=== PATIENT | male | born 1975 | race Caucasian/White ===

== ENCOUNTER 2019-06-20 11:46 | Emergency (ER) | payer BC, OTHER ==
[~2019-06-20] VITALS: Ht 177.8 cm; Wt 113.5 kg
[~2019-06-20 11:46] MED LIST: PANT-47 PO
[2019-06-20] MEDS ORDERED: TETanus/Pertussis (Acell)/Diphther VAC/PF (Tdap-Adult) 0.5ml syringe IMVAC ONE (12:05)
[2019-06-20] MEDS ORDERED: ciprofloxacin lact 400MG/200ML 200 ML IV STA (12:33)
[2019-06-20] MEDS ORDERED: LIDOcaine 1% 30ml preserv. free vial SQ STA (12:34)
[2019-06-20 13:13] LABS: URINE AMPHETAMINE SCREEN NEGATIVE (Neg); URINE BARBITUATE SCREEN NEGATIVE (Neg); URINE BENZODIAZEPINES SCREEN NEGATIVE (Neg); URINE CANNABINOID SCREEN NEGATIVE (Neg); URINE COCAINE SCREEN NEGATIVE (Neg); URINE METHADONE SCREEN NEGATIVE (Neg); URINE OPIATE SCREEN NEGATIVE (Neg); URINE PHENCYCLIDINE SCREEN NEGATIVE (Neg)
[2019-06-20] MEDS ORDERED: CIPR-259 PO (13:21)
[2019-06-20] MEDS ORDERED: HYDR-4383 PO (13:41)
[2019-06-20 14:06] VITALS: BP 154/89
== END 2019-06-20 14:11 | disposition home or self-care (01) ==
LOC: ER 11:47
DX: S62.630A Displaced fracture of distal phalanx of right index finger, initial encounter for closed fracture (principal); S61.210A Laceration without foreign body of right index finger without damage to nail, initial encounter; G43.909 Migraine, unspecified, not intractable, without status migrainosus; G89.29 Other chronic pain; M54.9 Dorsalgia, unspecified; Z88.0 Allergy status to penicillin; W22.8XXA Striking against or struck by other objects, initial encounter; Y93.89 Activity, other specified; Y92.89 Other specified places as the place of occurrence of the external cause; Y99.8 Other external cause status
CPT/HCPCS: 12001; 73130; 80305; 90471; 90715; 96365; 99284; J0744; J2001; 99283

== ENCOUNTER 2019-07-23 09:49 | Emergency (ER) | payer OTHER ==
[~2019-07-23] VITALS: Ht 177.8 cm; Wt 114.0 kg
[~2019-07-23 09:49] MED LIST changes: +HYDR-4383 PO
[2019-07-23 10:05] VITALS: BP 176/128
[2019-07-23] MEDS ORDERED: SULF1TAB49 PO (12:02)
== END 2019-07-23 12:21 | disposition home or self-care (01) ==
LOC: ER 09:50
DX: S62.630D Displaced fracture of distal phalanx of right index finger, subsequent encounter for fracture with routine healing (principal); S61.210D Laceration without foreign body of right index finger without damage to nail, subsequent encounter; G89.29 Other chronic pain; Z98.890 Other specified postprocedural states; Z88.0 Allergy status to penicillin; Z79.2 Long term (current) use of antibiotics; Z79.899 Other long term (current) drug therapy; W22.8XXD Striking against or struck by other objects, subsequent encounter
CPT/HCPCS: 73140; 99283

== ENCOUNTER 2021-06-04 17:05 | Emergency (ER) | payer BC, OTHER | END 2021-06-04 19:30 | disposition left against medical advice (07) | LOC: ER 17:06 | DX: R10.9 Unspecified abdominal pain (principal); Z53.21 Procedure and treatment not carried out due to patient leaving prior to being seen by health care provider ==

== ENCOUNTER 2024-03-18 20:16 | Emergency (ER) | payer BC ==
[~2024-03-18] VITALS: Ht 177.8 cm; Wt 113.0 kg
[2024-03-18 20:54] LABS: HEMOGLOBIN 17.8 g/dl (14.0-17.9); LYMPHOCYTES % (AUTO) 48.3 % (21-51); MEAN PLATELET VOLUME 7.8 FL (7.4-10.4); MONOCYTES # (AUTO) 0.6 X10'3 (0-0.9); NEUTROPHILS # (AUTO) 4.4 X10'3 (1.8-7.7); RED CELL DISTRIBUTION WIDTH 13.8 % (11.5-14.5)
[2024-03-18 20:55] LABS: BASOPHILS # (AUTO) 0.1 X10'3 (0-0.2); BASOPHILS % (AUTO) 0.6 % (0-1); EOSINOPHILS # (AUTO) 0.1 X10'3 (0-0.9); EOSINOPHILS % (AUTO) 1.3 % (0-6); HEMATOCRIT 52.2 % (42.0-52.0); LYMPHOCYTES # (AUTO) 4.9 X10'3 (1.1-4.8); MEAN CORPUSCULAR HEMOGLOBIN 31.7 PG (27.0-31.0); MEAN CORPUSCULAR HGB CONC 34.1 g/dL (33.0-36.5); MEAN CORPUSCULAR VOLUME 93.1 FL (78-98); MONOCYTES % (AUTO) 6.1 % (2-12); NEUTROPHILS % (AUTO) 43.7 % (42-75); PLATELET COUNT 392 X10'3 (140-440); RED BLOOD COUNT 5.61 X10'6 (4.70-6.10); WHITE BLOOD COUNT 10.1 X10'3 (4.5-11.0)
[2024-03-18 21:08] LABS: ALANINE AMINOTRANSFERASE 34 U/L (12-78); ALBUMIN 3.9 G/DL (3.4-5.0); ALBUMIN/GLOBULIN RATIO 1.1 (1.1-1.5); ALKALINE PHOSPHATASE 100 IU/L (46-116); ANION GAP 8 (8-16); ASPARTATE AMINO TRANSFERASE 15 U/L (10-37); BILIRUBIN,TOTAL 0.6 MG/DL (0.1-1.0); BLOOD UREA NITROGEN 10 MG/DL (7-18); BUN/CREATININE RATIO 9.5 (10.0-20.0); CALCIUM 10.3 MG/DL (8.5-10.1); CHLORIDE 103 MMOL/L (99-107); CREATININE 1.05 MG/DL (0.60-1.10); GLUCOSE 116 MG/DL (70-104); LIPASE 42 U/L (16-77); POTASSIUM 3.9 MMOL/L (3.5-5.1); SODIUM 137 MMOL/L (135-145); TOTAL CARBON DIOXIDE 26.5 MMOL/L (24-32); TOTAL PROTEIN 7.6 G/DL (6.4-8.2); eCRCL 88 ML/MIN; eGFR 75 ML/MIN
[2024-03-19] MEDS: ondansetron 4mg rapidly disintigrating tab PO ONE (01:04)
[2024-03-19] MEDS: mag hydrox/Alum hydrox/simeth 30ml oral suspension PO ONE (01:04)
[2024-03-19] MEDS: LIDOcaine 2% Viscous 15ml cup MM ONE (01:04)
[2024-03-19 01:31] LABS: BILIRUBIN,URINE NEGATIVE (Neg); CLARITY,URINE CLEAR (Clear); COLOR,URINE YELLOW (Yellow); GLUCOSE, URINE NEGATIVE (Neg); KETONES,URINE NEGATIVE (Neg); LEUKOCYTE ESTERASE ,URINE NEGATIVE (Neg); NITRITES, URINE NEGATIVE (Neg); OCCULT BLOOD,URINE NEGATIVE (Neg); PH,URINE 6.5 (4.8-8.0); PROTEIN,URINE NEGATIVE (Neg); UROBILINOGEN,URINE 0.2 E.U/dL (0.2-1.0)
[2024-03-19 01:39] VITALS: BP 172/98; PULSE 68; RESP 16; TEMP 98.9; O2SAT 97
[2024-03-19 01:40] LABS: UA COLLECTION TYPE CLN CATCH MIDSTREAM
[2024-03-19] MEDS ORDERED: PANT20TA18 PO (02:02)
== END 2024-03-19 02:10 | disposition home or self-care (01) ==
LOC: ER 20:17
DX: R10.11 Right upper quadrant pain (principal); G43.909 Migraine, unspecified, not intractable, without status migrainosus; Z88.0 Allergy status to penicillin; Z79.899 Other long term (current) drug therapy; Z90.81 Acquired absence of spleen
CPT/HCPCS: 80053; 81003; 83690; 85025; 99284

== ENCOUNTER 2025-06-27 18:06 | Emergency (ER) | payer BC ==
[~2025-06-27] VITALS: Ht 177.8 cm; Wt 122.2 kg
[~2025-06-27 18:06] MED LIST changes: +PANT20TA18 PO
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
--- NOTE | 2025-06-27 19:00 | RADIOLOGY REPORT ---
CLINICAL INDICATION: ARM PAIN TECHNIQUE: 3 radiographic views of the left humerus were obtained. Comparison: None FINDINGS/IMPRESSION: There is no evidence of acute fracture or dislocation. The visualized joint space is well maintained. The alignment is anatomical. There is no radiopaque foreign body.
[2025-06-27] MEDS ORDERED: NAPR-56 PO (19:01)
[2025-06-27] MEDS ORDERED: CYCL-1 PO (19:01)
[2025-06-27 19:32] VITALS: BP 170/99; PULSE 89; RESP 20; TEMP 98.6; O2SAT 99
== END 2025-06-27 19:34 | disposition home or self-care (01) ==
LOC: ER 18:07
DX: S40.012A Contusion of left shoulder, initial encounter (principal); S00.93XA Contusion of unspecified part of head, initial encounter; G43.909 Migraine, unspecified, not intractable, without status migrainosus; F10.129 Alcohol abuse with intoxication, unspecified; Z87.440 Personal history of urinary (tract) infections; Z88.0 Allergy status to penicillin; Z90.81 Acquired absence of spleen; W22.09XA Striking against other stationary object, initial encounter; Y93.89 Activity, other specified; Y92.410 Unspecified street and highway as the place of occurrence of the external cause; Y99.8 Other external cause status; Y90.9 Presence of alcohol in blood, level not specified
CPT/HCPCS: 73060; 99283

== ENCOUNTER 2025-08-26 12:35 | Inpatient (IN) | payer BC ==
[~2025-08-26] VITALS: Ht 177.8 cm; Wt 131.0 kg
[~2025-08-26 12:35] MED LIST changes: +CYCL-1 PO
[2025-08-26 13:07] LABS: MEAN PLATELET VOLUME 8.2 FL (7.4-10.4); RED CELL DISTRIBUTION WIDTH 13.8 % (11.5-14.5)
[2025-08-26] MEDS: normal saline 1000ML IV soln IVB ONE (13:10)
[2025-08-26 13:26] LABS: CREATININE 1.25 MG/DL (0.60-1.10); TOTAL CARBON DIOXIDE 27.7 MMOL/L (24-32); eCRCL 73 ML/MIN; eGFR 61 ML/MIN
--- NOTE | 2025-08-26 13:30 | RADIOLOGY REPORT ---
CHEST RADIOGRAPH Indication: syncope Technique: Single frontal view of the chest was obtained Comparison: None FINDINGS: Lines and Tubes: None Lungs: No focal consolidation. Pleura: No effusion. No pneumothorax. Cardiomediastinal contours: Unremarkable Bones: No acute osseous abnormality. IMPRESSION: No acute cardiopulmonary disease.
--- NOTE | 2025-08-26 13:31 | ELECTROCARDIOGRAPH REPORT ---
[facility] Test Date: 2025-08-26 Test Time: 13:05:05 Pat Name: IRENE KEATING Department: EMERGENCY ROOM Patient ID: [facility]-[id number] Room: ORTHO 4008 Gender: M Hospital Mortician: TERRANCE : 1975 Requested By: AVIVA RAMAN Order Number: [id number] Reading MD: Dr. MARCE Robertson Measurements Intervals [place] Rate: 107 P: 3 TX: 161 QRS: -77 QRSD: 83 T: 36 QT: 348 QTc: 465 Interpretive Statements Sinus tachycardia Left anterior fascicular block Abnormal R-wave progression, late transition Borderline T wave abnormalities Electronically Signed On 08-27-2025 16:52:[address] MARCE Robertson Please click the below link to view image of tracing.
[2025-08-26] MEDS ORDERED: iohexol 300mg/ml 100ml inj. ONE (13:36)
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
[2025-08-26 13:58] LABS: APTT 20 SECONDS (22-32); INR 1.0 INR
[2025-08-26 14:01] LABS: PHOSPHORUS 1.3 MG/DL (2.3-4.5); PRO BRAIN NATRIURETIC PEPTIDE < 30 PG/ML (0-125)
[2025-08-26] MEDS: cefepime 1GM in D5W 50mL 50 ML IV ONE (14:20)
--- NOTE | 2025-08-26 14:47 | RADIOLOGY REPORT ---
EXAM: CT CT ABDOMEN PELVIS W/WO IV CONTRAST HISTORY: lower GI bleed TECHNIQUE: Volumetric multidetector CT images of the abdomen and pelvis were obtained after the administration of intravenous contrast. All CT scans at this facility use dose modulation, iterative reconstruction, and/or weight based dosing when appropriate to reduce radiation dose to as low as reasonably achievable. COMPARISON: None FINDINGS: [LOWER CHEST]: The partially visualized lung bases are clear without a pleural effusion. [LIVER]: Normal hepatic size without suspicious focal lesion. [GALLBLADDER AND BILIARY TREE]: No cholelithiasis. [SPLEEN]: Unremarkable. [PANCREAS]: Unremarkable. [ADRENAL GLANDS]: Unremarkable [KIDNEYS]: Nonobstructive bilateral renal caliceal stones, measuring up to 8-9 mm in the right and 4-5 mm in the left. No visualized distal ureteral stone. No hydronephrosis. No suspicious focal lesion. [BLADDER]: Unremarkable for the degree distention. [REPRODUCTIVE ORGANS]: Unremarkable. [BOWEL/MESENTERY]: Small possible sliding hiatal hernia. Mild stool burden. Minimal sigmoid diverticulosis. Normal appendix. Stomach is normal. No CT evidence of bowel obstruction. [ASCITES]: Absent [LYMPHADENOPATHY]: No pathologically enlarged lymph nodes by CT size criteria [VASCULATURE]: No focus of contrast extravasation. No aneurysmal dilatation. [ABDOMINAL WALL]: Unremarkable. [MUSCULOSKELETAL]: No acute fracture or aggressive focal osseous lesion. Multifocal degenerative change of the visualized spine. IMPRESSION: 1. No focus of contrast extravasation. 2. Nonobstructive bilateral renal caliceal stones. 3. [id number] stool burden. Sigmoid diverticulosis small sliding hiatal hernia.
[2025-08-26] MEDS: morphine 4 MG/ML inj SYRINge IV ONE (15:48)
[2025-08-26 16:08] LABS: LEUKOCYTE ESTERASE ,URINE NEGATIVE (Neg); NITRITES, URINE NEGATIVE (Neg); OCCULT BLOOD,URINE NEGATIVE (Neg)
[2025-08-26 16:12] LABS: UA COLLECTION TYPE CLN CATCH MIDSTREAM
[2025-08-26] MEDS: fentaNYL/PF 50MCG/1 ML 2ML syringe IV ONE (17:02)
[2025-08-26] MEDS ORDERED: magnesium sulf-water 4G/100mL 100 ML IV PRN (17:45)
[2025-08-26] MEDS ORDERED: magnesium hydroxide 30ml (MOM) UD suspension PO PRN (17:45)
[2025-08-26] MEDS ORDERED: potassium Cl 20 mEq SR tablet PO PRN ×2 (17:45)
[2025-08-26] MEDS ORDERED: potassium Cl 40MEQ/1/2NS 520ml 520 ML IV PRN (17:45)
[2025-08-26] MEDS ORDERED: magnesium Cl slow-release 64mg tablet PO PRN (17:45)
[2025-08-26] MEDS ORDERED: magnesium sulf-water 2g/50mL 50 ML IV PRN (17:45)
[2025-08-26] MEDS ORDERED: ondansetron 4mg rapidly disintigrating tab PO PRN (17:45)
[2025-08-26] MEDS ORDERED: ondansetron/PF 4mg/2ml inj IV PRN (17:45)
[2025-08-26] MEDS ORDERED: mag hydrox/Alum hydrox/simeth 30ml oral suspension PO PRN (17:45)
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
[2025-08-26] MEDS ORDERED: NO HOME MEDS (19:03)
[2025-08-26 19:32] LABS: MEAN PLATELET VOLUME 7.8 FL (7.4-10.4); RED CELL DISTRIBUTION WIDTH 13.6 % (11.5-14.5)
[2025-08-26 19:49] LABS: CHOL/HDL RATIO 4.5 (0.00-4.99); LDL CHOLESTEROL 98 MG/DL (50-100)
[2025-08-26] MEDS: docusate sod 100mg capsule PO SCH (20:00)
[2025-08-26 20:03] LABS: % IRON SATURATION 31 % (11-46)
[2025-08-26] MEDS: K and/or MAG REPLACEMENT MC SCH (20:12)
[2025-08-26] MEDS: pantoprazole 40MG/NS 100ML BAG 100 ML IV SCH (20:23)
[2025-08-26] MEDS ORDERED: SODIUM PHOSPHATE IN D5W 260 ML IV PRN (20:35)
[2025-08-26] MEDS ORDERED: sodium phos 15mmol/D5 255mL 255 ML IV PRN (20:35)
[2025-08-26 21:30] VITALS: BP 124/78; PULSE 97; RESP 19; TEMP 97.5; O2SAT 99
[2025-08-26] MEDS: normal saline 1000ml 1,000 ML IV SCH (21:30)
[2025-08-26 21:33] VITALS: RESP 19; O2SAT 99
[2025-08-27] VITALS (18 sets, daily range): BP systolic 99–129; BP diastolic 47–86; PULSE 75–96; RESP 14–18; TEMP 97.4–97.9; O2SAT 97–100
[2025-08-27 03:33] LABS: MEAN PLATELET VOLUME 8.0 FL (7.4-10.4); RED CELL DISTRIBUTION WIDTH 14.0 % (11.5-14.5)
[2025-08-27 03:45] LABS: CREATININE 0.92 MG/DL (0.60-1.10); PHOSPHORUS 3.1 MG/DL (2.3-4.5); TOTAL CARBON DIOXIDE 25.6 MMOL/L (24-32); eCRCL 99 ML/MIN; eGFR 87 ML/MIN
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
[2025-08-27 07:36] LABS: OSMOLALITY UA 597.0 MOSM/K (50-1400)
[2025-08-27] MEDS ORDERED: simethicone 40mg/0.6ml oral drops 15ml ONE (08:00)
[2025-08-27 08:21] LABS: UA EOSINOPHILS NO EOS /HPF
[2025-08-27 08:42] LABS: CREATININE,URINE RANDOM 131.0 MG/DL; TOTAL PROTEIN,URINE RANDOM 13.5 MG/DL
[2025-08-27 11:35] LABS: MEAN PLATELET VOLUME 8.2 FL (7.4-10.4); RED CELL DISTRIBUTION WIDTH 13.7 % (11.5-14.5)
[2025-08-27] MEDS ORDERED: fentaNYL/PF 50MCG/1 ML 2ML syringe ONE (12:39)
[2025-08-27] MEDS ORDERED: midazolam 1 mg/ML 2ml injection ONE (12:40)
[2025-08-27] MEDS ORDERED: propofol inj 20 ML IV ONE (12:51)
[2025-08-27 17:59] LABS: MEAN PLATELET VOLUME 7.5 FL (7.4-10.4); RED CELL DISTRIBUTION WIDTH 13.9 % (11.5-14.5)
[2025-08-27] MEDS: morphine 4 MG/ML inj SYRINge IV PRN (20:17)
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
[2025-08-28 01:36] LABS: MEAN PLATELET VOLUME 8.2 FL (7.4-10.4); RED CELL DISTRIBUTION WIDTH 13.9 % (11.5-14.5)
[2025-08-28 01:52] LABS: CREATININE 0.89 MG/DL (0.60-1.10); PHOSPHORUS 2.6 MG/DL (2.3-4.5); TOTAL CARBON DIOXIDE 26.4 MMOL/L (24-32); eCRCL 103 ML/MIN; eGFR 90 ML/MIN
[2025-08-28] MEDS: morphine 4 MG/ML inj SYRINge IV PRN (04:57)
[2025-08-28 06:00] VITALS: BP 131/72; PULSE 77; RESP 14; TEMP 97.1; O2SAT 97
[2025-08-28 07:03] VITALS: RESP 16; O2SAT 95
[2025-08-28 07:34] LABS: MEAN PLATELET VOLUME 7.6 FL (7.4-10.4); RED CELL DISTRIBUTION WIDTH 14.1 % (11.5-14.5)
[2025-08-28 08:00] VITALS: BP_SYST 131; BP_SYST 137; BP_SYST 163; BP_DIAS 78; BP_DIAS 80; BP_DIAS 89; PULSE 82; PULSE 94
[2025-08-28] MEDS ORDERED: HYDROcodone/acetaminophen 5mg/325mg tablet PO PRN (08:05)
[2025-08-28 09:43] VITALS: BP 137/78; PULSE 82; RESP 18; TEMP 97.9; O2SAT 97
[2025-08-28 11:08] LABS: OCCULT BLOOD STOOL POSITIVE (Neg)
[2025-08-28] MEDS ORDERED: OMEP-271 PO (11:25)
[2025-08-28 14:40] LABS: MEAN PLATELET VOLUME 8.5 FL (7.4-10.4); RED CELL DISTRIBUTION WIDTH 14.2 % (11.5-14.5)
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
[2025-08-29] MEDS ORDERED: PANT-47 PO (08:40)
== END 2025-08-28 16:05 | disposition home or self-care (01) | DRG 378 ==
LOC: ER 12:35 → ED HOLD 17:51 → ORTHO 4S 21:40
PROVIDERS: ADMIT Internal Medicine; ATTEND Internal Medicine
PROC: 0DB78ZX Excision of Stomach, Pylorus, Via Natural or Artificial Opening Endoscopic, Diagnostic (ICD-10-PCS; principal; 2025-08-27 12:37)
DX: K57.31 Diverticulosis of large intestine without perforation or abscess with bleeding (principal); N17.9 Acute kidney failure, unspecified; E66.01 Morbid (severe) obesity due to excess calories; D64.9 Anemia, unspecified; Z68.41 Body mass index [BMI] 40.0-44.9, adult; G43.909 Migraine, unspecified, not intractable, without status migrainosus; G89.29 Other chronic pain; M54.9 Dorsalgia, unspecified; K44.9 Diaphragmatic hernia without obstruction or gangrene; K20.90 Esophagitis, unspecified without bleeding; Z87.11 Personal history of peptic ulcer disease; Z87.442 Personal history of urinary calculi; Z88.0 Allergy status to penicillin; Z90.81 Acquired absence of spleen
CPT/HCPCS: 36415; 43239; 71045; 74178; 80053; 80061; 81003; 82272; 82570; 82728; 83540; 83550; 83605; 83690; 83735; 83880; 83935; 84100; 84133; 84145; 84156; 84300; 84484; 85025; 85027; 85610; 85651; 85730; 86885; 86900; 86901; 87040; 87081; 87207; 93005; 99285; A4615; A4620; G0378; J0692; J0780; J2250; J2270; J2470; J2704; J3010; J7030; J7120; Q9967